=== PATIENT | female | born 1970 | race Caucasian/White ===

== ENCOUNTER 2023-09-20 18:00 | Emergency (ER) | payer OTHER, SELFPAY ==
[2023-09-20 18:01] VITALS: BP 152/68; PULSE 64; RESP 16; TEMP 36.5; O2SAT 100; BMI 25.0
--- NOTE | 2023-09-20 18:22 | CT_ITS ---
STUDY: CT Abdomen And Pelvis W/ Contrast Injection 09/20/2023 7:03 PM REASON FOR EXAM: Female, 53 years old. Abdominal pain pain Individualized dose optimization techniques were used for this CT. COMPARISON: None. TECHNIQUE: CT Abdomen And Pelvis W/ Contrast Injection IV 100mL [id number] FINDINGS: There are atherosclerotic calcifications of visualized coronary arteries. The visualized portions of the heart are within normal limits. Normal liver. Normal gallbladder and extrahepatic biliary system. Normal spleen. Normal pancreas. Normal bilateral adrenal glands. No acute findings of the right kidney. No acute findings of the left kidney. Normal visualized stomach. Normal small intestine. There are multiple colonic diverticula consistent with diverticulosis. The appendix is visualized and appears normal. There are calcifications of the abdominal aorta. This is consistent for atherosclerotic disease. There is NO abdominal aortic aneurysm. Vascular workup can be obtained based on clinical correlation. Normal inferior vena cava. Subcentimeter mesenteric lymph nodes. Normal urinary bladder. There is absence of the uterus consistent with a prior hysterectomy. There is an umbilical hernia containing fat. Normal osseous structures. CT/Abdomen/Pelvis W IV Cont ONLY IMPRESSION: (NOT LISTED IN ORDER OF SIGNIFICANCE) Constipation. There is an umbilical hernia containing fat. There is no bowel involvement. There is no incarceration. There is no findings suggesting that this is causing a bowel obstruction. Other findings as above. Electronically Signed: Migue Campbell MD at 19:05 EST ,
--- NOTE | 2023-09-20 18:23 | ED.VIS.GI ---
HPI HPI - GI History of Present Illness Chief Complaint: Abd Pain Informant: patient and spouse/S.O. Narrative Narrative: Patient presents with abdominal bloating. Patient states she has had abdominal issues her entire life. She has had frequent UTIs even as a child. She has been on antibiotics 100s of times. She also has chronic constipation. She will occasionally take a generic stool softener [id number]. She is also a vegan so she eats a large amount of fiber. The reason she came in today is she has been having more hot flashes than normal. She is going through menopause. But states over the last 3 or 4 days she has been having hot flashes in the middle of the day not just morning and night. She was concerned that maybe these are fevers. She is eating and drinking. She will get nausea with the hot flashes but no other times. She states she has not moved her bowels in a long time. She is also had frequent problems with urine infections and urinary symptoms such as frequency. She has done 2 telehealth visits over the last couple months and received antibiotics. She is then done 2 other visits where she had urinalysis done that were totally normal. She called to make an appointment with urologist but cannot get in for about 2-1/2 weeks. She has never had a colonoscopy. Family history of diverticulitis but she does not know if she has ever had diverticula. PFSH PFSH Home Medications NK 09/20/23 [History Last Taken Unknown] Allergy/AdvReac Type Severity Reaction Status Date / Time sulfamethoxazole Allergy Mild Hives Verified 09/20/23 18:02 [From Bactrim] trimethoprim [From Bactrim] Allergy Mild Hives Verified 09/20/23 18:02 Social History Smoking Status: Never smoker ROS ROS ED ROS Narrative A complete review of systems was performed and is negative except as documented in the history of present illness. Some specific details below. Constitutional: No recent fevers or chills. She does get sweats and she is not sure if this is fevers or chills or is just her normal hot flashes. She states she does have severe hot flashes compared to normal. EYE: No visual complaints or pain. ENT: No difficulty swallowing. No swelling. No pain. No GERD. CV: No chest pain or palpitations. Respiratory: No dyspnea. No hemoptysis. No difficulty taking breaths. GI: Please see history of present illness. : Long history of frequency. Sometimes she gets dysuria. She has never had hematuria. No odor. Musculoskeletal: No recent trauma. No pains. Skin: No rash. Nondiaphoretic. Neuro: No weakness or numbness. Endocrine: No polyuria or polydipsia. EXAM Physical Exam Narrative Exam Narrative: CONSTITUTIONAL: Patient is nontoxic in appearance. The patient looks comfortable. HEENT: No notable trauma. Mucous membranes moist. No sinus tenderness. No indication of pain with swallowing. EYES: No conjunctival injection. No icterus. CARDIOVASCULAR: Regular rate. Regular rhythm. No notable murmur. No JVD. RESPIRATORY: No respiratory distress. Breathing is unlabored. No wheezes. No rhonchi. No rales. No pain with a deep breath. Saturations are normal at 100% on room air showing no hypoxia. GASTROINTESTINAL: Abdomen does look a little bit ortiz than her size. This may be just very mild distention. Bowel sounds are normal. No tenderness. No guarding. No rebound. No palpable mass. No bruit. Overall exam is relatively benign. GENITOURINARY: No tenderness over the bladder. No CVA tenderness on either side. MUSCULOSKELETAL: Atraumatic. No peripheral edema. NEUROLOGICAL: Patient is alert and appropriate. No focal deficit noted. SKIN: No noted rashes. No diaphoresis. PSYCHIATRIC: Patient is calm. Mood is appropriate. Const Vital Signs: 09/20/23 18:01 Temperature 97.7 F L Temperature Source Temporal Pulse Rate 64 Respiratory Rate 16 Blood Pressure 152/68 H Blood Pressure Mean 96 Pulse Ox 100 Oxygen Delivery Method Room Air MDM MDM MDM Narrative Medical decision making narrative: Patient CBC is normal. Patient's electrolytes are overall normal other than minimal elevation of chloride. Patient Patient's liver function test are normal. Patient's lipase is normal. Patient's urinalysis is normal. My independent interpretation of her CT shows a lot of stool throughout the colon but no acute process or mass. No inflammatory changes. Final reading shows umbilical hernia with fat but no acute process. I discussed options with the patient. Her biggest issue is she does not move her bowels. I explained that she has had this since she has been quite young. We are not going to fix this here but I can get her something to try to at least get her bowels moving now. I have encouraged her to then use MiraLAX for least a week and wind down on it. She now tells me she has been on MiraLAX for 3 days. I explained that it is not really a great laxative but is brighter and keeping stools moving. We will get her GoLytely as I think this will encourage a significant bowel movement more than other therapies. I have encouraged her to see a primary physician and die repairer forging as these problems are in excess of 40 years. Lab Data Attestation: I reviewed the patient's lab results. Labs: Laboratory Results - last 24 hr 09/20/23 18:35 WBC 6.7 RBC 4.62 Hgb 13.2 Hct 41.1 MCV 89.0 MCH 28.6 MCHC 32.1 RDW Std Deviation 39.7 RDW Coeff of Caleb 12.2 Plt Count 181 MPV 12.3 H Immature Gran % (Auto) 0.100 Neut % (Auto) 48.1 Lymph % (Auto) 37.9 [place] % (Auto) 6.3 Eos % (Auto) 7.0 H Baso % (Auto) 0.6 Absolute Neuts (auto) 3.2 Absolute Lymphs (auto) 2.53 Nucleated RBC % 0 Sodium 144 Potassium 3.5 Chloride 111 H Carbon Dioxide 31.0 Anion Gap 2 L BUN 16 Creatinine 0.79 Estim Creat Clear Calc 79.17 Est GFR (MDRD) Af Amer 98 Est GFR (MDRD) Non-Af 81 BUN/Creatinine Ratio 20.4 H Glucose 108 H Calcium 9.4 Total Bilirubin 0.40 AST 10 L ALT 21 Alkaline Phosphatase 83 Total Protein 6.6 Albumin 4.2 Globulin 2.4 Albumin/Globulin Ratio 1.8 Lipase 37 Serum , Qual NEGATIVE Urine Color Yellow Urine Clarity Clear Urine pH 6.5 Ur Specific [place] 1.015 Urine Protein 15 H Urine Glucose (UA) Normal Urine Ketones Negative Urine Occult Blood Negative Urine Nitrite Negative Urine Bilirubin Negative Urine Urobilinogen Normal Ur Leukocyte Esterase Negative Urine RBC 0 SEEN Urine WBC 0 SEEN Ur Squamous Epith Cells 0 SEEN Urine Bacteria 0 SEEN Urine Mucus 0 SEEN Radiography Diagnostic Testing: Clinical Impression(s) from Imaging Studies Abdomen/Pelvis CT 09/20/23 18:22 IMPRESSION: (NOT LISTED IN ORDER OF SIGNIFICANCE) Constipation. There is an umbilical hernia containing fat. There is no bowel involvement. There is no incarceration. There is no findings suggesting that this is causing a bowel obstruction. Other findings as above. Electronically Signed: Migue Campbell MD at 19:05 EST Reading Location ID and State: [facility] / [place] , Service support , Discharge Plan Triage Chief Complaint: Abd Pain ED Provider: Charles Bliss Dx/Rx/DC Orders Clinical Impression: Chronic constipation, Abdominal pain Instructions: ED Constipation (Adult) Prescriptions: No Action NK Primary Care Provider: Care Physician,No Primary Referrals: Care Physician,No Primary [Primary Care Provider] - Friend,Rafa, DO [Med Staff - Active Staff] - As soon as possible Disposition Disposition: Home, Self Care
[2023-09-20 18:44] LABS: Bacteria 0 SEEN /hpf (None Seen); Mucous, Urine 0 SEEN /hpf (<or=2+); Red Blood Cells-Urine 0 SEEN /hpf (0-5); Squamous Epithelial Cells - UA 0 SEEN /hpf (5-10); White Blood Cells 0 SEEN /hpf (0-5)
[2023-09-20 18:46] LABS: Color, Urine Yellow (Yellow); Glucose, Dipstick Normal (Normal); Ketone-Dipstick Negative (Negative); Leukocyte Esterase-Dipstick Negative /ul (Negative); Nitrite-Dipstick Negative (Negative); Occult Blood-Urine Negative /ul (Negative); Protein-Dipstick 15 mg/dl (Negative); Specific Gravity, Urine 1.015 (1.002-1.030); Urine Bilirubin Dipstick Negative (Negative); Urine Clarity Clear (Clear); Urine Urobilinogen Normal (Normal); Urine pH 6.5 (5.0 - 8.0)
[2023-09-20 18:48] LABS: Absolute Lymphocyte Count 2.53 X10^3/uL (0.83-4.51); Absolute Neutrophil Count 3.2 X10^3/uL (2.0-7.7); Basophil# 0.04 X10^3/uL; Basophil% 0.6 % (0-1); Eosinophil# 0.47 X10^3/uL; Hematocrit 41.1 % (37-47); Hemoglobin 13.2 g/dL (12.0-15.0); Lymphocyte # 2.53 X10^3/ul (0.83-4.51); Lymphocyte % 37.9 % (19-41); Mean Corp Hgb Conc 32.1 g/dL (32-36); Mean Corpuscular Hgb 28.6 pg (27.0-32.0); Mean Platelet Vol. 12.3 fl (6.2-12.0); Monocyte# 0.42 X10^3/uL; Monocyte% 6.3 % (0-10); NRBC Flagged by Analyzer 0 % (0-5); Neutrophil % 48.1 % (47-70); Platelet Count 181 K/mm3 (150-450); RBC Distribution Width CV 12.2 % (11.6-14.6); RBC Distribution Width SD 39.7 fl (35.1-43.9); Red Blood Count 4.62 M/mm3 (4.2-5.4); White Blood Count 6.7 K/mm3 (4.4-11.0)
[2023-09-20 18:56] LABS: Internal QC Validated? YES +Cl - CLEAR BKGD; Pregnancy, Serum, hCG Quali. NEGATIVE Negative; Record Kit Lot#, Serum Preg. HCG718086
--- OUTSIDE RECORDS SUMMARY | 2023-09-20 19:10 | XMS RPT_ITS | CCD ---
Author Name Unknown Address [address] [place] [address] Organization [facility] Care Team Providers Care Patternmaker Wood Name Role Phone AMBER MOSLEY Unavailable Unavailable CHRISTI RICO CNP Admitting Unavailable CHRISTI RICO CNP Attending Unavailable CHRISTI RICO CNP Consulting Unavailable CHRISTI RICO CNP Primary Care Unavailable PROVIDER, UNKNOWN Consulting Unavailable PROVIDER, UNKNOWN Consulting Unavailable Results Test Name Value Interpretation Reference Range Facil ity Encounters Encounter Date Encounter Type Care Provider Facility Start: 01-15-2022 End: 01-15-2022 ambulatory CHRISTI RICO [facility] Start: 01-06-2018 End: 01-11-2018 Ambulatory AMBER MOSLEY [facility] Payers Date Payer Category Payer Unknown [id number] Unknown Summary Purpose Family History No Family History Records FoundNo Family History Records Found Advance Directives No Advanced Directives Records FoundNo Advanced Directives Records Found Additional Source Comments INFORMATION SOURCE (unrecogn ized section and content) DATE CREATED AUTHOR AUTHOR'S ORGANIZ ATION [facility]/2022 [facility] FOR RECORDS PERTAINING TO PATIENTS WHO ARE OR HAVE BEEN ENROLLED IN A CHEMICAL DEPENDENCY/SUBSTANCEABUSE PROGRAM, SOME INFORMATION MAY BE OMITTED. This clinical summary was aggregated from multiple sources. Caution should be exercised in using it in the provision of clinical care. This summary normalizes information from multiple sources, and as a consequence, information in this document may materially change the coding, format and clinical context of patient data. In addition, data may be omitted in some cases. CLINICAL DECISIONS SHOULD BE BASED ON THE PRIMARY CLINICAL RECORDS. [facility]. provides no warranty or guarantee of the accuracy or completeness of information in this document.
[2023-09-20 19:11] LABS: ALB/GLOB Ratio 1.8 RATIO (0.9-2.4); AST(SGOT) 10 U/L (15-37); Alanine Aminotransfer ALT/SGPT 21 U/L (13-56); Albumin, Serum 4.2 g/dL (3.2-5.0); Alkaline Phosphatase 83 U/L (45-117); Anion Gap 2 (5-15); BUN 16 mg/dL (7-18); BUN/Creat Ratio 20.4 RATIO (10-20); Calcium,Total 9.4 mg/dL (8.5-10.1); Chloride 111 mmol/L (98-107); Creatinine, Serum 0.79 mg/dL (0.55-1.02); EST Glomerular Filtration Rate 81 mL/min (>60); Est Glom Filt Rate - Afr Amer 98 mL/min (>60); Estimated Creatinine Clearance 79.17 ml/min; Globulin 2.4 g/dL (2.2-4.2); Glucose 108 mg/dL (74-106); Lipase 37 U/L (13-75); Potassium 3.5 mmol/L (3.5-5.1); Protein, Total 6.6 g/dL (6.4-8.2); Sodium Level 144 mmol/L (136-145)
--- NOTE | 2023-09-20 20:06 | ED.RN ---
patient out to nurses desk and asking for dc paperwork, states that she needs to get going. Dr Bliss with DC paperwork, order for golytely and informed patient of this. Patient declined and asked to just have her paperwork to leave.
--- NOTE | 2023-09-20 20:10 | ED.RN ---
Patient got dressed and left. This RN then called patient to ask about IV. Stated that she took IV out when she got dressed.
== END 2023-09-20 20:14 | disposition home or self-care (01) ==
PROVIDERS: Emergency Provider Emergency Medicine; Visit Provider Emergency Medicine
DX: K59.09 Other constipation (principal); K42.9 Umbilical hernia without obstruction or gangrene; Z78.0 Asymptomatic menopausal state; Z87.440 Personal history of urinary (tract) infections
CPT/HCPCS: 74177; 80053; 81001; 83690; 84703; 85025; 99283; Q9967; A4216

== ENCOUNTER → 2024-07-01 15:41 | Outpatient (REF) | payer MEDICAID, SELFPAY ==
[2024-07-01 16:21] LABS: Estradiol < 11.0 pg/mL
[2024-07-03 07:28] LABS: PROGESTERONE 0.1 ng/mL (.)
[2024-07-05 13:08] LABS: G6PD Quant Test 252 (127-427)
== END ==
LOC: LABSPEC 15:41
PROVIDERS: Referring Provider Nurse Practitioner Family; Visit Provider Nurse Practitioner Family
DX: R53.82 Chronic fatigue, unspecified (principal); R53.1 Weakness; R61 Generalized hyperhidrosis; E89.41 Symptomatic postprocedural ovarian failure; K59.01 Slow transit constipation; M25.676 Stiffness of unspecified foot, not elsewhere classified; M79.673 Pain in unspecified foot; F41.9 Anxiety disorder, unspecified; F32.A Depression, unspecified; R51.9 Headache, unspecified; R06.00 Dyspnea, unspecified
CPT/HCPCS: 82627; 82670; 82955; 84144; 84403; 82626

== ENCOUNTER → 2024-09-30 | Outpatient (CLI) | payer MEDICAID, SELFPAY ==
[2024-09-30 18:12] LABS: Absolute Lymphocyte Count 2.06 X10^3/uL (0.83-4.51); Absolute Neutrophil Count 2.6 X10^3/uL (2.0-7.7); Basophil# 0.04 X10^3/uL; Basophil% 0.7 % (0-1); Eosinophil# 0.35 X10^3/uL; Eosinophils% 6.4 % (0-5); Hematocrit 42.1 % (37-47); Hemoglobin 13.9 g/dL (12.0-15.0); Lymphocyte # 2.06 X10^3/ul (0.83-4.51); Lymphocyte % 37.9 % (19-41); Mean Corpuscular Volume 87.7 fL (81-99); Mean Platelet Vol. 12.3 fl (6.2-12.0); Monocyte% 7.4 % (0-10); NRBC Flagged by Analyzer 0 % (0-5); Neutrophil # 2.56 X10^3/uL (2.7-7.7); Neutrophil % 47.2 % (47-70); Platelet Count 205 K/mm3 (150-450); RBC Distribution Width SD 41.6 fl (35.1-43.9); White Blood Count 5.4 K/mm3 (4.4-11.0)
[2024-09-30 18:27] LABS: ALB/GLOB Ratio 1.5 RATIO (0.9-2.4); AST(SGOT) 43 U/L (15-37); Alanine Aminotransfer ALT/SGPT 49 U/L (13-56); Albumin, Serum 4.1 g/dL (3.2-5.0); Alkaline Phosphatase 117 U/L (45-117); Anion Gap 6 (5-15); BUN 9 mg/dL (7-18); BUN/Creat Ratio 16.6 RATIO (10-20); Calcium,Total 9.5 mg/dL (8.5-10.1); Chloride 108 mmol/L (98-107); Creatinine, Serum 0.54 mg/dL (0.55-1.02); EST Glomerular Filtration Rate 124 mL/min (>60); Est Glom Filt Rate - Afr Amer 150 mL/min (>60); Globulin 2.7 g/dL (2.2-4.2); Glucose 88 mg/dL (74-106); Potassium 3.9 mmol/L (3.5-5.1); Protein, Total 6.8 g/dL (6.4-8.2); Sodium Level 142 mmol/L (136-145)
== END | disposition home or self-care (01) ==
PROVIDERS: Referring Provider Nurse Practitioner Family; Visit Provider Nurse Practitioner Family
DX: R53.82 Chronic fatigue, unspecified (principal)
CPT/HCPCS: 80053; 85025

== ENCOUNTER → 2024-12-01 | Outpatient (CLI) | payer MEDICAID, SELFPAY ==
[2024-12-01 17:22] LABS: Absolute Lymphocyte Count 2.18 X10^3/uL (0.83-4.51); Absolute Neutrophil Count 3.1 X10^3/uL (2.0-7.7); Basophil# 0.05 X10^3/uL; Basophil% 0.8 % (0-1); Eosinophil# 0.22 X10^3/uL; Eosinophils% 3.6 % (0-5); Hematocrit 40.5 % (37-47); Hemoglobin 13.9 g/dL (12.0-15.0); Lymphocyte # 2.18 X10^3/ul (0.83-4.51); Lymphocyte % 36.1 % (19-41); Mean Corp Hgb Conc 34.3 g/dL (32-36); Mean Corpuscular Hgb 29.3 pg (27.0-32.0); Mean Corpuscular Volume 85.4 fL (81-99); Mean Platelet Vol. 11.6 fl (6.2-12.0); Monocyte# 0.44 X10^3/uL; Monocyte% 7.3 % (0-10); NRBC Flagged by Analyzer 0 % (0-5); Neutrophil # 3.13 X10^3/uL (2.7-7.7); Neutrophil % 51.9 % (47-70); Platelet Count 230 K/mm3 (150-450); RBC Distribution Width CV 12.5 % (11.6-14.6); RBC Distribution Width SD 38.6 fl (35.1-43.9); Red Blood Count 4.74 M/mm3 (4.2-5.4)
[2024-12-01 18:04] LABS: ALB/GLOB Ratio 1.9 RATIO (0.9-2.4); AST(SGOT) 19 U/L (<=31); Alanine Aminotransfer ALT/SGPT 16 U/L (<=34); Albumin, Serum 4.6 g/dL (3.5-5.0); Alkaline Phosphatase 88 U/L (35-104); Anion Gap 11 (5-15); BUN 10 mg/dL (4-19); BUN/Creat Ratio 14.9 RATIO (10-20); Calcium,Total 9.7 mg/dL (7.6-11.0); Carbon Dioxide 22.5 mmol/L (21.0-32.0); Chloride 104 mmol/L (98-108); Creatinine, Serum 0.66 mg/dL (0.70-1.20); EST Glomerular Filtration Rate 104 (>60); Erythrocyte Sedimentation Rate 1 mm/hr (0-30); Globulin 2.5 g/dL (2.2-4.2); Glucose 127 mg/dL (70-99); Potassium 3.6 mmol/L (3.3-5.1); Sodium Level 137 mmol/L (133-145); Total Bilirubin 0.29 mg/dL (0.00-1.30); Troponin T High Sensitivity < 6 ng/L (<=14)
[2024-12-01 19:14] LABS: Amylase 80 U/L (28-100); CRP < 3.00 mg/L (0.0-3.0); Lipase 44 U/L (13-75)
[2024-12-03 05:08] LABS: CRP, High Sensitivity 0.88 mg/L (0.00-3.00)
== END | disposition home or self-care (01) ==
LOC: LAB 16:08
PROVIDERS: Referring Provider Nurse Practitioner Family; Visit Provider Nurse Practitioner Family
DX: R53.82 Chronic fatigue, unspecified (principal); R53.1 Weakness; R61 Generalized hyperhidrosis; E89.41 Symptomatic postprocedural ovarian failure; K59.01 Slow transit constipation; M25.676 Stiffness of unspecified foot, not elsewhere classified; M79.673 Pain in unspecified foot; F41.9 Anxiety disorder, unspecified; F32.A Depression, unspecified; R51.9 Headache, unspecified; A44.0 Systemic bartonellosis; A68.1 Tick-borne relapsing fever; D68.59 Other primary thrombophilia; R06.00 Dyspnea, unspecified; R07.89 Other chest pain; R10.13 Epigastric pain; R10.31 Right lower quadrant pain; R11.0 Nausea
CPT/HCPCS: 36415; 80053; 82150; 83690; 84484; 85025; 85652; 86140; 86141

== ENCOUNTER → 2024-12-09 | Outpatient (CLI) | payer MEDICAID, SELFPAY ==
--- NOTE | 2024-12-09 07:47 | EKG12_ITS ---
Test Reason : EPIGASTRIC PAIN Blood Pressure : */* mmHG Vent. Rate : 62 BPM Atrial Rate : 62 BPM P-R Int : 120 ms QRS Dur : 86 ms QT Int : 438 ms P-R-T Axes : 48 68 71 degrees QTcB Int : 444 ms Normal sinus rhythm Normal ECG Confirmed by RODRIGO ANAYA, LONG ([id number]), assistant production editor ARIE STEELE ([id number]) on 12/09/2024 1:15:28 PM Referred By: Charleen Vivar Confirmed By: LONG WALLACE MD
--- NOTE | 2024-12-09 08:06 | US_ITS ---
PROCEDURE: ABDOMEN COMPLETE ([facility]), 12/09/2024 REASON FOR EXAM: EPIGASTRIC PAIN COMPARISON: 09/20/2023 FINDINGS: Liver: Borderline mildly echogenic. 13.6 cm in length. Gallbladder: No visualized stones, wall thickening or pericholecystic fluid. Reportedly, sonographic Zaidi's was negative. Biliary tree: Unremarkable. CBD measures 3 mm. Pancreas: Partially obscured by shadowing bowel gas, grossly unremarkable as visualized. Right kidney: Slightly echogenic. 10.9 cm in length. Left kidney: Slightly echogenic. 10.8 cm in length. Spleen: Unremarkable. 8.7 cm in maximum dimension. Aorta: Atherosclerosis. IVC:Unremarkable. Other: No visualized free fluid. US/Abdomen Complete IMPRESSION: 1. No acute findings. If unexplained symptoms persist, consider CT. 2. Borderline diffuse hepatic steatosis. Correlate for clinical and laboratory evidence of chronic liver disease. 3. Question chronic medical renal disease. Correlate with serum creatinine. 4. Additional description as above. Reading Location: [id number]
== END | disposition home or self-care (01) ==
PROVIDERS: Referring Provider Nurse Practitioner Family; Visit Provider Nurse Practitioner Family
DX: R10.13 Epigastric pain (principal); R10.31 Right lower quadrant pain; R11.0 Nausea; R53.1 Weakness; R07.89 Other chest pain
CPT/HCPCS: 76700; 93005

== ENCOUNTER → 2024-12-14 | Outpatient (CLI) | payer MEDICAID, SELFPAY ==
[2024-12-14 16:59] LABS: AST(SGOT) 19 U/L (<=31); Alanine Aminotransfer ALT/SGPT 18 U/L (<=34); Albumin, Serum 4.6 g/dL (3.5-5.0); Alkaline Phosphatase 88 U/L (35-104); Anion Gap 13 (5-15); BUN 10 mg/dL (4-19); BUN/Creat Ratio 16.1 RATIO (10-20); Calcium,Total 9.7 mg/dL (7.6-11.0); Carbon Dioxide 22.6 mmol/L (21.0-32.0); Chloride 104 mmol/L (98-108); EST Glomerular Filtration Rate 106 (>60); Globulin 2.3 g/dL (2.2-4.2); Glucose 105 mg/dL (70-99); Hepatitis B Surface Antigen Nonreactive (Nonreactive); Hepatitis C Antibody Nonreactive (Nonreactive); Potassium 4.1 mmol/L (3.3-5.1); Protein, Total 6.8 g/dL (5.9-8.4); Sodium Level 139 mmol/L (133-145)
[2024-12-16 05:07] LABS: Hepatitis A IgM Antibody Negative (Negative); Hepatitis B Core AB IgM Negative (Negative)
== END | disposition home or self-care (01) ==
LOC: LAB 15:16
PROVIDERS: Referring Provider Nurse Practitioner Family; Visit Provider Nurse Practitioner Family
DX: R53.1 Weakness (principal); R53.82 Chronic fatigue, unspecified; R61 Generalized hyperhidrosis; R10.13 Epigastric pain; R11.0 Nausea; D68.59 Other primary thrombophilia
CPT/HCPCS: 36415; 80053; 86705; 86709; 86803; 87340